=== PATIENT | female | born 1980 | race Caucasian/White ===

== ENCOUNTER → 2019-09-10 07:55 | Outpatient (CLI) | payer OTHER ==
[2014-05-26 06:19] VITALS: BMI 29.3
[~2019-09-10 07:55] MED LIST: FLINTSTONE1 TAB.CHEW PO; IBUPROFEN600 MG PO; PERCOCET 5-3251 TAB PO; PRENATAL COMPLE1 TAB PO
== END | disposition home or self-care (01) ==
LOC: D.RAD 07:55
PROVIDERS: ATTEND Internal Medicine Gastroenterology
DX: R19.7 Diarrhea, unspecified (principal)